=== PATIENT | male | born 1990 | race American Indian/Alaskan Native ===

== ENCOUNTER 2021-09-26 15:27 | Emergency (ER) | payer SELFPAY ==
[2021-09-26] MEDS ORDERED: CYCLOBENZAPRINE 10 MG TAB PO ONE (16:43)
[2021-09-26] MEDS ORDERED: KETOROLAC 10 MG TAB PO ONE (16:43)
[2021-09-26] MEDS ORDERED: predniSONE 20 MG TAB PO ONE (16:43)
--- NOTE | 2021-09-26 16:50 | Emergency Department Report ---
ED Back Pain/Injury HPI - General Chief Complaint: Back Pain/Injury Stated Complaint: BACK PAIN Time Seen by Provider: 09/26/21 16:42 Source: patient Limitations: No Limitations - History of Present Illness Initial Comments: 30-year-old male patient with no past medical history presents to the ER for evaluation of 2-day history of worsening lower back pain. He states the pain s tarted yesterday after lifting heavy objects at work. He states that he was in an accident 1 year ago and since then he has back pain intermittently but back pain is worse today. He denies any recent injury. He denies fever, abdominal pain, urinary symptoms or saddle paresthesia. He states the pain is worse with movement and pain does not radiate down the legs. MD Complaint: back pain -: Gradual, days(s) (2) Similar Symptoms Previously: Yes Place: work Radiation: none Severity: severe Severity scale (0 -10): 9 Quality: aching Consistency: constant, intermittent Worsens With: movement, walking Context: other (After lifting heavy object) Associated Symptoms: denies: chest pain, numbness, difficulty walking, difficulty urinating, fever/chills, abdominal pain, nausea/vomiting Treatments Prior to Arrival: NSAIDS - Related Data Previous Rx's Medication Instructions Recorded Last Taken Type Albuterol Sulfate [Ventolin HFA] 2 puff IH Q4H PRN #1 hfa.aer.ad 08/10/13 Unknown Rx Azithromycin [Zithromax Z-DREW] 500 mg PO ONCE #6 tablet 08/10/13 Unknown Rx Cyclobenzaprine [Flexeril] 10 mg PO TID PRN #21 tab 09/26/21 Unknown Rx Lidocaine [Lidoderm] 1 each TP DAILY PRN #10 patch 09/26/21 Unknown Rx Naproxen Sodium [Naproxen Sodium 550 mg PO BID #14 tab 09/26/21 Unknown Rx 550mg] Allergies Allergy/AdvReac Type Severity Reaction Status Date / Time No Known Allergies Allergy Unverified 08/09/13 21:00 ED Review of Systems ROS: Stated complaint: BACK PAIN Other details as noted in HPI Comment: All other systems reviewed and negative Constitutional: no symptoms reported Respiratory: no symptoms reported Cardiovascular: denies: chest pain, edema Endocrine: no symptoms reported Gastrointestinal: denies: abdominal pain, nausea, vomiting Genitourinary: denies: urgency, dysuria, frequency, hematuria, discharge, testicular pain Musculoskeletal: back pain Skin: denies: rash Neurological: denies: headache, weakness, numbness, paresthesias, abnormal gait ED Past Medical Hx - Past Medical History Previous Medical History?: No - Surgical History Past Surgical History?: No - Social History Smoking Status: Current Every Day Smoker Substance Use Type: Alcohol - Medications Home Medications: Home Medications Medication Instructions Recorded Confirmed Last Taken Type Albuterol Sulfate [Ventolin HFA] 2 puff IH Q4H PRN #1 hfa.aer.ad 08/10/13 Unknown Rx Azithromycin [Zithromax Z-DREW] 500 mg PO ONCE #6 tablet 08/10/13 Unknown Rx Cyclobenzaprine [Flexeril] 10 mg PO TID PRN #21 tab 09/26/21 Unknown Rx Lidocaine [Lidoderm] 1 each TP DAILY PRN #10 patch 09/26/21 Unknown Rx Naproxen Sodium [Naproxen Sodium 550 mg PO BID #14 tab 09/26/21 Unknown Rx 550mg] ED Physical Exam - General Limitations: No Limitations General appearance: alert, in no apparent distress - Head Head exam: Present: atraumatic, normocephalic - Eye Eye exam: Absent: conjunctival injection - Neck Neck exam: Present: normal inspection, full ROM. Absent: tenderness - Respiratory Respiratory exam: Present: normal lung sounds bilaterally. Absent: respiratory distress, chest wall tenderness - Cardiovascular Cardiovascular Exam: Present: regular rate - GI/Abdominal GI/Abdominal exam: Present: soft. Absent: distended, tenderness, guarding - Extremities Exam Extremities exam: Present: normal inspection, full ROM - Back Exam Back exam: Present: normal inspection, tenderness (tender to right lower back only). Absent: full ROM, CVA tenderness (R), CVA tenderness (L), muscle spasm, paraspinal tenderness, vertebral tenderness - Expanded Back Exam Expanded Back exam: Absent: saddle anesthesia - Neurological Exam Neurological exam: Present: alert, oriented X3, normal gait - Psychiatric Psychiatric exam: Present: normal affect, normal mood - Skin Skin exam: Present: warm, dry ED Course Vital Signs 09/26/21 09/26/21 16:26 17:01 Temperature 98.8 F 97.7 F Pulse Rate 65 82 Respiratory 16 16 Rate Blood Pressure 121/52 139/68 [Left] O2 Sat by Pulse 98 96 Oximetry ED Medical Decision Making - Medical Decision Making 30-year-old male patient with no past medical history presents to the ER for evaluation of 2-day history of worsening lower back pain. He states the pain started yesterday after lifting heavy objects at work. He states that he was in an accident 1 year ago and since then he has back pain intermittently but back pain is worse today. He denies any recent injury. He denies fever, abdominal pain, urinary symptoms or saddle paresthesia. He states the pain is worse with movement and pain does not radiate down the legs. On exam, patient noted to have tenderness to right lower back only. No spinous process tenderness no radiation to the legs. Plan to treat patient with anti- inflammatories and muscle relaxers and few days rest from work. He will be encouraged to follow-up with primary care provider or orthopedics if no improvement or worsening symptoms. Plan was reviewed with patient he agreed and verbalized understanding. Critical Care Time: No Critical care attestation.: If time is entered above; I have spent that time in minutes in the direct care of this critically ill patient, excluding procedure time. ED Disposition Clinical Impression: Back pain Qualifiers: Back pain location: low back pain Chronicity: acute Back pain laterality: right Sciatica presence: without sciatica Qualified Code(s): M54.50 - Low back pain, unspecified Disposition: 01 HOME / SELF CARE / HOMELESS Is pt being admited?: No Does the pt Need Aspirin: No Condition: Stable Instructions: Acute Back Pain, Adult, Back Injury Prevention, [id number] Additional Instructions: Take medications as prescribed. Follow up with pcp if no improvement or worsening symptoms. Prescriptions: Cyclobenzaprine [Flexeril] 10 mg PO TID PRN #21 tab PRN Reason: Muscle Spasm Lidocaine [Lidoderm] 1 each TP DAILY PRN #10 patch PRN Reason: Pain, Mild (1-3) Naproxen Sodium [Naproxen Sodium 550mg] 550 mg PO BID #14 tab Referrals: ED LANG MD [Staff Physician] - 3-5 Days Forms: Work/School Release Form Time of Disposition: 16:50
[2021-09-26 17:03] VITALS: BP 139/68
== END 2021-09-26 17:33 | disposition home or self-care (01) ==
LOC: ED 15:27
DX: M54.50 Low back pain, unspecified (principal); F17.200 Nicotine dependence, unspecified, uncomplicated; F10.20 Alcohol dependence, uncomplicated
CPT/HCPCS: 99282